=== PATIENT | male | born 1960 | race Caucasian/White ===

== ENCOUNTER 2017-10-28 12:52 | Emergency (ER) | payer BC ==
[~2017-10-28] VITALS: Ht 180.3 cm; Wt 131.0 kg
[2017-10-28 12:56] VITALS: BP 128/69; PULSE 90; RESP 18; TEMP 97.9; O2SAT 96
[2017-10-28] MEDS ORDERED: CINN500C2 PO (13:18)
[2017-10-28] MEDS ORDERED: LISI10TA3 PO (13:18)
[2017-10-28] MEDS ORDERED: LIPI10TA PO (13:18)
[2017-10-28] MEDS ORDERED: METF500T PO (13:18)
[2017-10-28] MEDS ORDERED: FLAV3.7O (13:18)
[2017-10-28] MEDS ORDERED: APPL300T2 PO (13:20)
[2017-10-28] MEDS ORDERED: GING500C2 PO (13:20)
[2017-10-28] MEDS ORDERED: MULTTAB4 PO (13:20)
[2017-10-28] MEDS ORDERED: FAMOTIDINE 20 MG TAB PO ONE (13:30)
[2017-10-28] MEDS ORDERED: diphenhydrAMINE HCL 50 MG/ML VIAL IM ONE (13:30)
[2017-10-28] MEDS ORDERED: DEXAMETHASONE SOD PHOS 4 MG/ML VIAL IM ONE (13:30)
[2017-10-28] MEDS ORDERED: PRED20 PO (13:33)
[2017-10-28] MEDS ORDERED: ZANT150T2 PO (13:33)
--- NOTE | 2017-10-28 13:34 | PD ---
HPI Chief Complaint: Skin Problem Time Seen by Provider: 13:23 Travel History International Travel<30 days: No Contact w/Intl Traveler<30days: No Traveled to known affect area: No History of Present Illness HPI 56-year-old male presents to the emergency department for evaluation of bilateral eyelid swelling that started yesterday. He has been taking over-the- counter Benadryl without improvement. Patient reports some clear eye drainage as well. He reports visual changes only because his eyelids are swollen and he cannot see. Patient denies any fevers or chills. He has past medical history of diabetes, on metformin, hypertension, hyperlipidemia. Patient denies any other symptoms or complaints. No swelling of lips, tongue, throat. No difficulty breathing or swallowing. Patient is here on vacation for bike week. Moderate severity. PFSH Past Medical History Asthma: Yes High Cholesterol: Yes Diabetes: Yes Patient Takes Glucophage: Yes (10/28/17 0900) Hypertension: Yes Tetanus Vaccination: < 5 Years Influenza Vaccination: No ?: Not Past Surgical History Other Surgery: Yes (hernia, skin graft left leg) Social History Alcohol Use: Yes (ocassionally ) Tobacco Use: Yes (1 can dip, 10 cigs daily) Substance Use: No Allergies-Medications (Allergen,Severity, Reaction): Coded Allergies: Penicillins (Verified Allergy, Unknown, 10/28/17) Reported Meds & Prescriptions Reported Meds & Active Scripts Active Reported Multi Vitamin Mens (Multiple Vitamin) 1 Tab Tab 1 Tab PO DAILY Apple Cider Vinegar (Cider Vinegar) 300 Mg Tablet 1 Tab PO DAILY Leticia Root (Leticia (Zingiber Officinalis)) 500 Mg Cap 1 Tab PO DAILY Eql Cinnamon (Cinnamon) 500 Mg Cap 1,000 Mg PO DAILY Lisinopril 10 Mg Tab 10 Mg PO DAILY Lipitor (Atorvastatin Calcium) 10 Mg Tab 10 Mg PO HS Metformin (Metformin HCl) 500 Mg Tab 500 Mg PO BIDPC Review of Systems Except as stated in HPI: all other systems reviewed are Neg Physical Exam Narrative GENERAL: Well-nourished, well-developed male patient, afebrile. SKIN: Focused skin assessment warm/dry. Bilateral upper and lower eye lids are edematous, no erythema. Patient has sunburn to the face and arms. HEAD: Normocephalic. Atraumatic. EYES: No scleral icterus. No injection or drainage. PERRLA. EOM intact. NECK: Supple, trachea midline. No JVD or lymphadenopathy. CARDIOVASCULAR: Regular rate and rhythm without murmurs, gallops, or rubs. RESPIRATORY: Breath sounds equal bilaterally. No accessory muscle use. Lungs sounds clear to auscultation. GASTROINTESTINAL: Abdomen soft, non-tender, nondistended. MUSCULOSKELETAL: No cyanosis, or edema. BACK: Nontender without obvious deformity. No CVA tenderness. Data Data Last Documented VS Vital Signs Date Time Temp Pulse Resp B/P (MAP) Pulse Ox O2 Delivery O2 Flow Rate FiO2 10/28/17 12:56 97.9 90 18 128/69 (88) 96 Orders Orders Dexamethasone Inj (Decadron Inj) (10/28/17 13:30) Diphenhydramine Inj (Benadryl Inj) (10/28/17 13:30) Famotidine (Pepcid) (10/28/17 13:30) [facility] Medical Decision Making Medical Screen Exam Complete: Yes Emergency Medical Condition: Yes Medical Record Reviewed: Yes Differential Diagnosis Allergic reaction versus contact dermatitis versus sunburn Narrative Course 56-year-old male presents to the emergency department for evaluation of bilateral eyelid swelling that started yesterday. Otherwise, he does appear well and exam. Patient is given dexamethasone 8 mg IM, Benadryl 25 mg IM, Pepcid 20 mg by mouth. He will be discharged with a prescription for prednisone , Zantac. He is to continue [id number] Benadryl. He verbalizes agreement and understanding. Patient is also instructed to use ice. The patient was discharged in stable condition with instructions, including return instructions and follow up instructions. Diagnosis Primary Impression: Allergic reaction Qualified Codes: T78.40XA - Allergy, unspecified, initial encounter Referrals: Primary Care Physician call for appointment Patient Instructions: General Allergic Reaction (ED), General Instructions Additional Instructions: Take [id number] Benadryl 25-50 mg every 6-8 hours as needed. Take prednisone as directed until gone. Start this tomorrow Take Zantac as directed. Ice for 20 minutes 4-5 times daily. Follow-up with your primary care physician. Return to the emergency department for any acute worsening of symptoms. Med/Other Pt SpecificInfo: Prescription(s) given Scripts Ranitidine (Zantac) 150 Mg Tab 150 MG PO BID for Reduce Stomach Acid for 5 Days, #10 TAB 0 Refills Prov: Ashley Barnhart 10/28/17 Prednisone (Prednisone) 20 Mg Tab 40 MG PO DAILY for 5 Days, #10 TAB 0 Refills Take 40 mg (2 tablets) daily for 5 days Prov: Ashley Barnhart 10/28/17 Disposition: 01 DISCHARGE HOME Condition: Stable Ashley Barnhart Oct 28, 2017 13:34
== END 2017-10-28 14:35 | disposition home or self-care (01) ==
LOC: PHEFT 12:52
DX: T78.40XA Allergy, unspecified, initial encounter (principal); I10 Essential (primary) hypertension; E78.00 Pure hypercholesterolemia, unspecified; E11.9 Type 2 diabetes mellitus without complications; E78.5 Hyperlipidemia, unspecified; J45.909 Unspecified asthma, uncomplicated; F17.290 Nicotine dependence, other tobacco product, uncomplicated; Z88.0 Allergy status to penicillin; Z79.84 Long term (current) use of oral hypoglycemic drugs; Z79.899 Other long term (current) drug therapy
CPT/HCPCS: 96372; 99284; J1100; J1200